=== PATIENT | male | born 1970 | race Caucasian/White ===

== ENCOUNTER 2021-01-15 23:01 | Emergency (ER) | payer SELFPAY ==
[~2021-01-15] VITALS: Ht 177.8 cm; Wt 81.6 kg
[2021-01-15 23:20] VITALS: BP 140/98
--- NOTE | 2021-01-15 23:23 | NUR ---
TO LOBBY A/W BED AMBULATORY
[2021-01-16] MEDS ORDERED: SULFAMETH/TRIMETH DS 800/160MG 1 TAB PO ONE (00:55)
[2021-01-16] MEDS ORDERED: SULF-59 PO (01:14)
== END 2021-01-16 01:30 | disposition home or self-care (01) ==
LOC: MED 23:01
DX: L03.116 Cellulitis of left lower limb (principal); Z88.0 Allergy status to penicillin; Z79.899 Other long term (current) drug therapy
CPT/HCPCS: 99283